=== PATIENT | female | born 1960 | race African-American/Black ===

== ENCOUNTER 2017-03-08 12:50 | Emergency (ER) | payer OTHER ==
[2017-03-08 12:57] VITALS: TEMP 98; BMI 29.2
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
[2017-03-08] MEDS ORDERED: IBUPROFEN 600 MG TABLET (FP) PO ONE ×2 (14:34→14:41)
[2017-03-08] MEDS ORDERED: diazePAM 5 MG TABLET PO ONE (14:35)
[2017-03-08] MEDS ORDERED: diazePAM 5 MG TABLET ONE (14:41)
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
[2017-03-08] MEDS ORDERED: ACETAMINOPHEN 500 MG TABLET (FP) PO ONE (17:04)
[2017-03-08] MEDS ORDERED: ACETAMINOPHEN 325 MG TABLET (FP) ONE (17:31)
[2017-03-08 18:37] VITALS: BP 118/65; PULSE 72
--- NOTE | 2017-03-09 12:11 | EKG ---
Test Reason : Blood Pressure : / mmHG Vent. Rate : 059 BPM Atrial Rate : 059 BPM P-R Int : 150 ms QRS Dur : 078 ms QT Int : 420 ms P-R-T Axes : 020 036 043 degrees QTc Int : 415 ms SINUS BRADYCARDIA OTHERWISE NORMAL ECG WHEN COMPARED WITH ECG OF 17-MAY-2013 19:14, VENT. RATE HAS DECREASED BY 41 BPM REPEAT EKG IF CLINICALLY INDICATED Confirmed by MEME CARRASCO MD ([id number]) on 03/09/2017 12:10:39 PM Referred By: Confirmed By:MEME CRARASCO MD
== END 2017-03-08 18:37 | disposition home or self-care (01) ==
LOC: JER 12:50
PROC: 2W3DX1Z Immobilization of Left Lower Arm using Splint (ICD-10-PCS; principal; 2017-03-08)
DX: M25.532 Pain in left wrist (principal); I10 Essential (primary) hypertension; E78.00 Pure hypercholesterolemia, unspecified; K21.9 Gastro-esophageal reflux disease without esophagitis
CPT/HCPCS: 29125; 70450-TC; 71020-TC; 72125-TC; 73110-TC-LT; 73130-TC-LT; 93005; 93010; 99282-25